=== PATIENT | female | born 2000 | race Asian ===

== ENCOUNTER 2024-01-01 00:34 | Emergency (ER) | payer OTHER ==
[~2024-01-01] VITALS: Ht 157.5 cm; Wt 78.0 kg
[2024-01-01 00:48] VITALS: BP_SYST 128; PULSE 89; RESP 18; TEMP 98.1; O2SAT 98
[2024-01-01] MEDS ORDERED: LIDOCAINE 1%, 20 ML MDV 20 ML ONE (01:38)
[2024-01-01] MEDS: LIDOCAINE VISCOUS 2%, 15 ML UDC MM ONE (01:53)
[2024-01-01] MEDS: LIDOCAINE 1% 10 MG/ML, 20 ML MDV INJ ONE (01:53)
[2024-01-01] MEDS ORDERED: DOXY100C5 PO (02:41)
[2024-01-01 02:59] VITALS: BP_SYST 128; PULSE 87; RESP 17; TEMP 97.8; O2SAT 98
== END 2024-01-01 00:57 | disposition home or self-care (01) ==
LOC: SED 00:34
DX: S00.551A Superficial foreign body of lip, initial encounter (principal); K13.0 Diseases of lips; Z79.899 Other long term (current) drug therapy; W26.8XXA Contact with other sharp object(s), not elsewhere classified, initial encounter; Y93.89 Activity, other specified; Y92.89 Other specified places as the place of occurrence of the external cause; Y99.8 Other external cause status
CPT/HCPCS: 99284; J2001